=== PATIENT | female | born 1985 | race Two or more races ===

== ENCOUNTER → 2024-04-06 | Outpatient (CLI) | payer MEDICAID, SELFPAY ==
--- NOTE | 2024-04-06 15:45 | XR_ITS ---
Examination: Screening digital mammography, bilateral Computer aided detection 3-D breast Tomosynthesis, bilateral Date and time of exam: April 06, 2024 1509 hours No priors Indication: Screening, itching right nipple Technique: Nonmagnified MLO, CC views of the breasts to been obtained, reconstructed from 3-D Tomosynthesis images. R2 computer aided detection program utilized for evaluation of suspicious masses and/or abnormal calcifications. 3-D Tomosynthesis images obtained. Findings: The breasts are heterogeneously dense, which may obscure small masses Benign calcifications. No suspicious masses Impression: BI-RADS category II: Benign Findings. Recommend 1 year follow-up mammogram. Given the patient's presentation, recommend bilateral breast sonography follow-up
== END | disposition home or self-care (01) ==
LOC: CDIM 14:54
PROVIDERS: Referring Provider Physician Assistant; Visit Provider Physician Assistant
DX: Z12.31 Encounter for screening mammogram for malignant neoplasm of breast (principal); R92.323 Mammographic fibroglandular density, bilateral breasts; R92.1 Mammographic calcification found on diagnostic imaging of breast
CPT/HCPCS: 77063; 77067

== ENCOUNTER 2025-01-16 12:40 | Emergency (ER) | payer MEDICAID, SELFPAY ==
[2025-01-16 13:24] VITALS: BP 161/106; PULSE 96; RESP 18; TEMP 36.7; O2SAT 98; BMI 26.9
--- NOTE | 2025-01-16 13:30 | XR_ITS ---
EXAMINATION: PA chest single view TECHNIQUE: Upright PA chest single view Date and time: January 16, 2025, 1405 hours INDICATIONS: Inhaled chemicals today with coughing FINDINGS: Normal heart size Lungs are clear. Osseous rectors are intact IMPRESSION: No pneumonia or pulmonary edema
--- NOTE | 2025-01-16 13:31 | PD.EDADULT ---
ED General RME/HPI General Chief complaint: General Adult/Misc Complain Stated complaint: INHALED CHLOROX W/ VINEGAR, VOMITING Time Seen by Provider: 01/16/25 13:24 Arrival date/time: 01/16/25 12:40 CC: Cough HPI patient inhaled chlorine and vinegar approximately 45 minutes ago now is a persistent cough. It is dry, nonproductive patient states he is coughed hard it up to throat x 1. Patient denies chest pain shortness of breath diarrhea constipation. Initial vital signs showed oxygen saturation of 98% and normal respiratory rate. Related Data Home Medications ?Medication ?Instructions ?Recorded ?Confirmed [id number]-[id number]-[id number]-[id number] 1 mg tab PO 03/24/22 tablet Previous Rx's ?Medication ?Instructions ?Recorded famotidine-Ca carb-mag hydrox 10 1 tab PO QDAY PRN indigestion #14 06/03/22 mg-800 mg-165 mg chewable tablet tabs (Acid [employer] Complete (famotidine)) guaifenesin 100 mg/5 mL oral liquid 200 mg (10 mL) PO Q4H PRN cough 01/16/25 #473 mL Allergies Allergy/AdvReac Type Severity Reaction Status Date / Time latex Allergy Severe Anaphylaxis Verified 01/16/25 12:44 Review of Systems Review of Systems Narrative Review of Systems: GEN: No fever, no chills, no weight loss EYES: No discharge, no visual changes, no pain HEENT: No ear pain, no congestion, no sore throat PULM: No shortness of breath, + cough, no congestion CV: No chest pain, no dyspnea on exertion, no palpitations GI: No nausea, no vomiting, no diarrhea, no pain, no constipation : No frequency, no urgency, no dysuria MUSC/SKEL: No joint pain, no back pain SKIN: No rash PSYCH: No hallucinations, no depression HEME/LYMPH: No easy bleeding or bruising tendencies NEURO: No weakness, no headache ED Exam Narrative Physical exam: [General: Not in any acute distress Head normocephalic HEENT: Within acceptable limits Neck is supple nontender, no stridor JVD or edema. Chest equal chest rise nontender to palpation Respiratory: Clear to auscultation no wheezes crackles or rubs no tachypnea CV: Rate rhythm is regular no murmurs rubs or clicks Abdomen is soft nontender no masses positive bowel sounds all 4 quadrants Back: No CVA tenderness no spinous process tenderness from cervical spine thoracic and lumbar spine Skin: Intact no petechiae rash induration ulceration or crepitus Extremities: Moving all extremity against resistance cap refill less than 2 seconds neurosensory intact Neuro: Awake alert oriented x3 Glascow coma 15 no focal deficits] Course Course Course Narrative: Reassessment of this patient at 1441, the patient is breathing without complications no stridor respiratory distress, wheezing crackles or rubs. At this time comfortable discharging the patient home. Quality Measures none Orders Category Date Time Status XR chest 1V Stat Exams 01/16/25 13:30 Taken Ondansetron Odt [Zofran Odt] Med 01/16/25 13:31 Discontinued 4 mg PO X1 ONE Vital Signs Vital signs: Vital Signs Temperature 98.0 F 01/16/25 13:24 Pulse Rate 96 01/16/25 13:24 Respiratory Rate 18 01/16/25 13:24 Blood Pressure 161/106 H 01/16/25 13:24 Pulse Oximetry (%) 98 01/16/25 13:24 Discharge Plan Plan Patient Disposition: HOME (Self Care) Patient condition on transfer: Stable Prescriptions/Referrals Prescriptions/Med Rec: New guaifenesin 100 mg/5 mL liquid 200 mg PO Q4H PRN (Reason: cough) Qty: 473 0RF No Action [id number] 1 mg Tablet PO Acid [employer] Complete (famot) 10-800-165 mg tablet,chewable 1 tab PO QDAY PRN (Reason: indigestion) Qty: 14 0RF Referrals: Hitesh Merritt MD [Primary Care Provider, Family Practice] - In 1 week Problem List Clinical Impression: Cough, Chemical exposure Patient/Caregiver Discharge Instructions Other Activity Instructions:: Please be very careful when exposing yourself to a combination of any chemicals at any time. As if there is a worsening of symptoms return the emergency room immediately for further evaluation. Education Materials: First Aid: Chemical Exposure Print Language: Turkish Stand Alone Forms: [employer] Award Info., Patient Portal Info Letter, Work/School Release PA/SENIOR DATA WAREHOUSE DEVELOPER Supervising Physician PA/SENIOR DATA WAREHOUSE DEVELOPER Supervising Physician: Ruben Grady ENP MDM Medication Administration(s) Medication Administration History Discontinued Medications Ondansetron HCl (Ondansetron Odt 4 Mg Tabrap) 4 mg PO X1 ONE; Protocol Stop: 01/16/25 13:32 Last Admin: 01/16/25 13:37 Dose: 4 mg Documented By: JOSE ANGEL
[2025-01-16] MEDS: ONDANSETRON ODT 4 MG TABRAP PO (13:37)
[2025-01-16 14:52] VITALS: BP 148/77; PULSE 78; RESP 18; TEMP 36.8; O2SAT 98
== END 2025-01-16 14:53 | disposition home or self-care (01) ==
PROVIDERS: Emergency Provider Emergency Medicine; PCP Family Medicine
DX: R05.1 Acute cough (principal); Z77.098 Contact with and (suspected) exposure to other hazardous, chiefly nonmedicinal, chemicals
CPT/HCPCS: 71045; 99282; Q0162